=== PATIENT | female | born 1960 | race Caucasian/White ===

== ENCOUNTER → 2021-02-07 | Emergency (ER) | payer OTHER ==
[~2021-02-07] VITALS: Ht 175.3 cm; Wt 90.7 kg
[~2021-02-07] MED LIST: KETOROLAC TROMETH 60MG/2ML VIAL IM ONE
[2021-02-07 16:31] VITALS: BP 109/61
== END | disposition home or self-care (01) ==
LOC: ER 16:25
DX: S22.32XA Fracture of one rib, left side, initial encounter for closed fracture (principal); W20.8XXA Other cause of strike by thrown, projected or falling object, initial encounter; Y93.89 Activity, other specified; Y92.89 Other specified places as the place of occurrence of the external cause; Y99.0 Civilian activity done for income or pay
CPT/HCPCS: 71101; 96372; 99283; J1885